=== PATIENT | female | born 1960 | race Caucasian/White ===

== ENCOUNTER 2018-09-24 08:59 | Emergency (ER) | payer BC ==
[2018-09-24] MEDS ORDERED: LIDOCAINE 1% MPF 5 ML VIAL ONE (09:48)
[2018-09-24] MEDS ORDERED: TETANUS & DIPHTHERIA TOX,ADULT 0.5 ML VIAL ONE (09:48)
[2018-09-24] MEDS ORDERED: IBUPROFEN 400 MG TAB ONE (09:54)
--- NOTE | 2018-09-24 10:27 | ER ---
Nurse's Notes [facility] Name: Lurdes Harper Age: 57 yrs Sex: Female : 1960 Arrival Date: 09/24/2018 Time: 09:01 Bed 16 Private MD: out of town, doctor Diagnosis: Laceration without foreign body of left thumb without damage to nail Presentation: 09/24 09:09 Presenting complaint: Patient states: laceration to posterior right thumb after running iw her hand over seat covers trimmer. Transition of care: patient was not received from another setting of care. Complicating Factors: There are no complicating factors for this patient. Onset of symptoms was September 24, 2018. Risk Assessment: Do you want to hurt yourself or someone else? Patient reports no desire to harm self or others. Initial Sepsis Screen: Does the patient meet any 2 criteria? No. Patient's initial sepsis screen is negative. Does the patient have a suspected source of infection? No. Patient's initial sepsis screen is negative. Care prior to arrival: None. 09:09 Method Of Arrival: Ambulatory iw 09:09 Acuity: RUBY 4 iw Historical: - Allergies: 09:11 No Known Allergies; iw - Home Meds: 09:11 None [Active]; iw - PMHx: 09:11 uterine cancer; colon cancer; iw - PSHx: 09:11 Hysterectomy; iw - Immunization history:: Last tetanus immunization:. - Social history:: Smoking status: Patient/guardian denies using tobacco. - Ebola Screening: : Patient negative for fever greater than or equal to 101.5 degrees Fahrenheit, and additional compatible Ebola Virus Disease symptoms Patient denies exposure to infectious person Patient denies travel to an Ebola-affected area in the 21 days before illness onset No symptoms or risks identified at this time. Screenin:00 Abuse screen: Denies threats or abuse. Nutritional screening: No deficits noted. jl7 Tuberculosis screening: No symptoms or risk factors identified. Fall Risk None identified. Assessment: 10:00 General: Appears in no apparent distress. uncomfortable, Behavior is calm, cooperative, jl7 appropriate for age. Pain: Complains of pain in left hand Pain does not radiate. Neuro: Level of Consciousness is awake, alert, obeys commands, Oriented to person, place, time, situation. Cardiovascular: Patient's skin is warm and dry. Respiratory: Airway is patent Respiratory effort is even, unlabored, Respiratory pattern is regular, symmetrical. GI: No signs and/or symptoms were reported involving the gastrointestinal system. : No signs and/or symptoms were reported regarding the genitourinary system. EENT: No signs and/or symptoms were reported regarding the EENT system. Derm: Skin is pink, warm \T\ dry. Musculoskeletal: Range of motion: intact in all extremities. Injury Description: Laceration sustained to left hand is contaminated, 2.6 to 7.5 cm long, was sustained 30-60 minutes ago. is bleeding no active bleeding noted. Vital Signs: 09:10 BP 110 / 63; Pulse 99; Resp 16 S; Pulse Ox 95% on R/A; Weight 65.77 kg; Height 5 ft. 6 iw in. (167.64 cm); Pain 8/10; 10:57 BP 111 / 65; Pulse 89; Resp 16 S; Pulse Ox 97% on R/A; jl7 09:10 Body Mass Index 23.40 (65.77 kg, 167.64 cm) iw ED Course: 09:01 Patient arrived in ED. mr 09:01 out of town, doctor is Private Physician. mr 09:09 Kai Dong PA is PHCP. cp 09:09 Jose Nichole MD is Attending Physician. cp 09:10 Triage completed. iw 09:11 Arm band placed on. iw 09:33 Uzair Fields, RICHARD is Primary Nurse. jl7 09:52 Wound care: to laceration located on palmar aspect of proximal phalanx of left thumb mh5 was cleaned with Betadine, Patient tolerated well. 10:00 Patient has correct armband on for positive identification. Bed in low position. Call jl7 light in reach. Side rails up X 1. 10:30 Assist provider with laceration repair on palmar aspect of proximal phalanx of left jl7 thumb that was between 2.6 to 7.5 cm using sutures. Set up tray. Performed by Kai EDWARDS Dressed with Neosporin, Patient tolerated well. 10:36 XRAY Hand LEFT 3 View In Process Unspecified. EDMS 10:58 Patient did not have IV access during this emergency room visit. 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 Exp: jl7 08/27/2020. Lot #: [id number]. } Route: IM; Site: left deltoid; 10:33 Follow up: Response: No adverse reaction jl7 09:46 Drug: Motrin 800 mg Route: PO; jl7 10:32 Follow up: Response: No adverse reaction; Pain is decreased jl7 10:10 Drug: Lidocaine (1 %) 5 ml {Note: administered by PA. Adrianna} Volume: 5 ml; Route: jl7 Infiltration; 10:32 Follow up: Response: No adverse reaction jl7 Outcome: 10:27 Discharge ordered by . ankita 10:58 Discharged to home ambulatory. jl7 10:58 Condition: stable 10:58 Discharge instructions given to patient, Instructed on discharge instructions, follow up and referral plans. medication usage, Demonstrated understanding of instructions, follow-up care, medications, Prescriptions given X 1. 10:59 Patient left the ED. jl7 Signatures: Dispatcher [employer] MALATN Gracy Gambino Irene, Kai Aquino RN, PA PA cp Martinez, [facility] Uzair Fields RN RN jl7
--- NOTE | 2018-09-24 10:28 | EDPHYS ---
Physician Documentation [facility] Name: Lurdes Harper Age: 57 yrs Sex: Female : 1960 Arrival Date: 09/24/2018 Time: 09:01 Bed 16 Private MD: out of town, doctor ED Physician Jose Nichole HPI: 09/24 09:30 This 57 yrs old Female presents to ER via Ambulatory with complaints of cp Laceration To Hand. 09:30 The patient has a laceration occurred outdoors. The laceration(s) is(are) located on cp the dorsal aspect left thumb. Onset: The symptoms/episode began/occurred just prior to arrival. Historical: - Allergies: 09:11 No Known Allergies; iw - Home Meds: 09:11 None [Active]; iw - PMHx: 09:11 uterine cancer; colon cancer; iw - PSHx: 09:11 Hysterectomy; iw - Immunization history:: Last tetanus immunization:. - Social history:: Smoking status: Patient/guardian denies using tobacco. - Ebola Screening: : Patient negative for fever greater than or equal to 101.5 degrees Fahrenheit, and additional compatible Ebola Virus Disease symptoms Patient denies exposure to infectious person Patient denies travel to an Ebola-affected area in the 21 days before illness onset No symptoms or risks identified at this time. ROS: 09:35 Constitutional: Negative for body aches, chills, fever, poor PO intake. cp 09:35 Skin: Positive for laceration(s), of the dorsal aspect proximal phalanx left thumb. cp 09:35 Neuro: Negative for numbness, tingling, weakness. 09:35 All other systems are negative. Exam: 09:42 Constitutional: The patient appears in no acute distress, alert, awake, well developed, cp well nourished. 09:42 Head/Face: Normocephalic, atraumatic. cp 09:42 Eyes: Periorbital structures: appear normal, Conjunctiva: normal, Lids and lashes: appear normal, bilaterally. 09:42 ENT: External ear(s): are unremarkable, Nose: is normal, Mouth: is normal. 09:42 Chest/axilla: Inspection: normal. 09:42 Cardiovascular: Rate: normal. 09:42 Respiratory: the patient does not display signs of respiratory distress, Respirations: normal, no use of accessory muscles, no retractions, no splinting, no tachypnea. 09:42 Abdomen/GI: Inspection: abdomen appears normal. 09:42 Musculoskeletal/extremity: ROM: full active range of motion, in the left thumb, Perfusion: the extremity is normally perfused throughout, Sensation intact. Tendon exam: specific tendon testing normal through active and passive range of motion 09:42 Skin: injury, laceration(s), the wound is approximately 3 cm(s), of the dorsal side proximal phalanx left thumb, that can be described as clean, no foreign body, linear, with mild bleeding. Vital Signs: 09:10 BP 110 / 63; Pulse 99; Resp 16 S; Pulse Ox 95% on R/A; Weight 65.77 kg; Height 5 ft. 6 iw in. (167.64 cm); Pain 8/10; 10:57 BP 111 / 65; Pulse 89; Resp 16 S; Pulse Ox 97% on R/A; jl7 09:10 Body Mass Index 23.40 (65.77 kg, 167.64 cm) iw Laceration: 10:23 Wound Repair of 3cm ( 1.2in ) subcutaneous laceration to dorsal aspect proximal phalanx cp left thumb. Linear shaped.. Distal neuro/vascular/tendon intact. Anesthesia: Wound infiltrated with 3 mls of 1% lidocaine. Wound prep: Moderate cleansing by me, Wound irrigation by me. Skin closed with 4 4-0 Prolene using simple sutures and sterile technique. Dressed with Bacitracin, non-adherent dressing. Patient tolerated well. MDM: 09:09 Patient medically screened. cp 10:00 Differential diagnosis: superficial laceration, tendon injury, vascular injury, open cp fracture. 10:25 Data reviewed: vital signs, nurses notes, radiologic studies, plain films. cp 10:26 Counseling: I had a detailed discussion with the patient and/or guardian regarding: the cp historical points, exam findings, and any diagnostic results supporting the discharge/admit diagnosis, to return to the emergency department if symptoms worsen or persist or if there are any questions or concerns that arise at home. 10:26 Response to treatment: the patient's symptoms have markedly improved after treatment, cp and as a result, I will discharge patient. 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 Exp: jl7 08/27/2020. Lot #: [id number]. } Route: IM; Site: left deltoid; 10:33 Follow up: Response: No adverse reaction jl7 09:46 Drug: Motrin 800 mg Route: PO; jl7 10:32 Follow up: Response: No adverse reaction; Pain is decreased jl7 10:10 Drug: Lidocaine (1 %) 5 ml {Note: administered by PA. Adrianna} Volume: 5 ml; Route: jl7 Infiltration; 10:32 Follow up: Response: No adverse reaction jl7 Disposition: 11:05 Chart complete. cp 12:18 Co-signature as Attending Physician, Jose Nichole MD. Disposition: 09/24/18 10:27 Discharged to Home. Impression: Laceration without foreign body of left thumb without damage to nail. - Condition is Stable. - Discharge Instructions: Laceration Care, Adult. - Prescriptions for Tramadol 50 mg Oral Tablet - take 1 tablet by ORAL route every 8 hours as needed; 12 tablet. - Medication Reconciliation Form, Thank You Letter, Antibiotic Education, Prescription Opioid Use form. - Follow up: Private Physician; When: 7 - 10 days; Reason: Staple/Suture removal. - Problem is new. - Symptoms have improved. Signatures: Dispatcher [employer] Emili Moss RN RN iw Page, Corey, PA PA cp Leal, Jahala, RN RN jl7 Starr, Gregory, MD MD Corrections: (The following items were deleted from the chart) 10:25 10:25 Dressing - Wound ordered. cp cp 10:59 10:27 09/24/2018 10:27 Discharged to Home. Impression: Laceration without foreign body jl7 of left thumb without damage to nail. Condition is Stable. Forms are Medication Reconciliation Form, Thank You Letter, Antibiotic Education, Prescription Opioid Use. Follow up: Private Physician; When: 7 - 10 days; Reason: Staple/Suture removal. Problem is new. Symptoms have improved. cp
--- NOTE | 2018-09-24 11:32 | RAD REPORT ---
EXAM DESCRIPTION: RAD - Hand Left 3 View - 09/24/2018 10:36 am CLINICAL HISTORY: laceration First digit pain/laceration. COMPARISON: No comparisonsNo comparisons FINDINGS: No fracture, dislocation or radiopaque foreign body.
== END 2018-09-24 10:59 | disposition home or self-care (01) ==
LOC: ER 08:59
PROC: 0JQK0ZZ Repair Left Hand Subcutaneous Tissue and Fascia, Open Approach (ICD-10-PCS; principal; 2018-09-24)
DX: S61.012A Laceration without foreign body of left thumb without damage to nail, initial encounter (principal); Z85.42 Personal history of malignant neoplasm of other parts of uterus; Z85.038 Personal history of other malignant neoplasm of large intestine; Z23 Encounter for immunization
CPT/HCPCS: 90714; 99284

== ENCOUNTER 2018-10-05 17:09 | Emergency (ER) | payer BC ==
--- NOTE | 2018-10-05 17:27 | EDPHYS ---
Physician Documentation [facility] Name: Lurdes Harper Age: 57 yrs Sex: Female : 1960 Arrival Date: 10/05/2018 Time: 17:12 Bed 10 Private MD: out of town, doctor ED Physician Craig Falcon HPI: 10/05 17:22 This 57 yrs old Female presents to ER via Ambulatory with complaints of kb Suture Removal. 17:22 The patient has sutures on the dorsal aspect of proximal phalanx of left thumb. kb Previous treatment: The patient was initially treated 11 day(s) ago, the care was rendered at [facility], Treatment type: The patient's original treatment included sutures. Sutures/dana progress:. Sutures/dana progress: The patient's wound displays wound dehiscence. The patient has not experienced similar symptoms in the past. The patient has not recently seen a physician. Pt had sutures placed 11 days ago and came to have them removed. Historical: - Allergies: 17:22 No Known Allergies; sg - PMHx: 17:22 colon cancer; uterine cancer; sg - PSHx: 17:22 Hysterectomy; sg - Immunization history:: Adult Immunizations. - Social history:: Smoking status: Patient/guardian denies using tobacco. - Ebola Screening: : Patient negative for fever greater than or equal to 101.5 degrees Fahrenheit, and additional compatible Ebola Virus Disease symptoms Patient denies exposure to infectious person Patient denies travel to an Ebola-affected area in the 21 days before illness onset No symptoms or risks identified at this time. ROS: 17:23 Constitutional: Negative for fever, chills, and weight loss, Cardiovascular: Negative kb for chest pain, palpitations, and edema, Respiratory: Negative for shortness of breath, cough, wheezing, and pleuritic chest pain, Abdomen/GI: Negative for abdominal pain, nausea, vomiting, diarrhea, and constipation, MS/Extremity: Negative for injury and deformity, Neuro: Negative for headache, weakness, numbness, tingling, and seizure. 17:23 Skin: Positive for laceration(s), of the dorsal aspect of proximal phalanx of left thumb, sutures in place. Exam: 17:23 Constitutional: This is a well developed, well nourished patient who is awake, alert, kb and in no acute distress. Head/Face: Normocephalic, atraumatic. Chest/axilla: Normal chest wall appearance and motion. Nontender with no deformity. No lesions are appreciated. Cardiovascular: Regular rate and rhythm with a normal S1 and S2. No gallops, murmurs, or rubs. Normal PMI, no JVD. No pulse deficits. Respiratory: Lungs have equal breath sounds bilaterally, clear to auscultation and percussion. No rales, rhonchi or wheezes noted. No increased work of breathing, no retractions or nasal flaring. Abdomen/GI: Soft, non-tender, with normal bowel sounds. No distension or tympany. No guarding or rebound. No evidence of tenderness throughout. MS/ Extremity: Pulses equal, no cyanosis. Neurovascular intact. Full, normal range of motion. Neuro: Awake and alert, GCS 15, oriented to person, place, time, and situation. Cranial nerves II-XII grossly intact. Motor strength 5/5 in all extremities. Sensory grossly intact. Cerebellar exam normal. Normal gait. 17:23 Skin: Wound recheck: Suture laceration closure: the wound is healing well, the edges are well approximated, no drainage, no erythema, no swelling, mild dehiscence. Vital Signs: 17:25 sg 17:25 pt left after being evaluated by ERP prior to obtaining VS for triage and for Discharge sg MDM: 17:20 Patient medically screened. kb 17:21 Data reviewed: nurses notes. Counseling: I had a detailed discussion with the patient kb and/or guardian regarding: the historical points, exam findings, and any diagnostic results supporting the discharge/admit diagnosis, the need for outpatient follow up, a hand specialist, to return to the emergency department if symptoms worsen or persist or if there are any questions or concerns that arise at home. 17:24 ED course: Pt has been keeping wound moist with neosporin. part of laceration is not kb healed and will dehisce if sutures removed at this time. Pt educated to keep wound clean and dry. Will return in 3 days for removal of sutures. . Administered Medications: No medications were administered Disposition: 10/06 06:33 Co-signature as Attending Physician, Craig Falcon MD I agree with the assessment and kdr plan of care. Disposition: 10/05/18 17:26 Discharged to Home. Impression: Encounter for removal of sutures - sutures not removed at this time. - Condition is Stable. - Medication Reconciliation Form, Thank You Letter, Antibiotic Education, Prescription Opioid Use form. - Follow up: Emergency Department; When: As needed; Reason: Worsening of condition. Follow up: Private Physician; When: 2 - 3 days; Reason: Recheck today's complaints, Continuance of care, Re-evaluation by your physician. Signatures: Krystina Simon FNP-Josselin SMITH-Mesfin Sandoval RN RN Craig Falcon MD MD [facility] Corrections: (The following items were deleted from the chart) 10/05 17:27 17:26 10/05/2018 17:26 Discharged to Home. Impression: Encounter for removal of sutures sg - sutures not removed at this time. Condition is Stable. Forms are Medication Reconciliation Form, Thank You Letter, Antibiotic Education, Prescription Opioid Use. Follow up: Emergency Department; When: As needed; Reason: Worsening of condition. Follow up: Private Physician; When: 2 - 3 days; Reason: Recheck today's complaints, Continuance of care, Re-evaluation by your physician. kb
--- NOTE | 2018-10-05 17:27 | ER ---
Nurse's Notes [facility] Name: Lurdes Harper Age: 57 yrs Sex: Female : 1960 Arrival Date: 10/05/2018 Time: 17:12 Bed 10 Private MD: out of town, doctor Diagnosis: Encounter for removal of sutures-sutures not removed at this time Presentation: 10/05 17:19 Presenting complaint: Patient states: Had these sutures inserted on the Sep 19 2018 sg after a laceration caused by a weed whacker machine. Transition of care: patient was not received from another setting of care. Onset of symptoms was October 05, 2018. Risk Assessment: Do you want to hurt yourself or someone else? Patient reports no desire to harm self or others. Initial Sepsis Screen: Does the patient meet any 2 criteria? No. Patient's initial sepsis screen is negative. Does the patient have a suspected source of infection? No. Patient's initial sepsis screen is negative. Care prior to arrival: None. 17:19 Method Of Arrival: Ambulatory sg 17:19 Acuity: RUBY 5 sg Historical: - Allergies: 17:22 No Known Allergies; sg - PMHx: 17:22 colon cancer; uterine cancer; sg - PSHx: 17:22 Hysterectomy; sg - Immunization history:: Adult Immunizations. - Social history:: Smoking status: Patient/guardian denies using tobacco. - Ebola Screening: : Patient negative for fever greater than or equal to 101.5 degrees Fahrenheit, and additional compatible Ebola Virus Disease symptoms Patient denies exposure to infectious person Patient denies travel to an Ebola-affected area in the 21 days before illness onset No symptoms or risks identified at this time. Screenin:25 Abuse screen: Denies threats or abuse. Denies injuries from another. Nutritional sg screening: No deficits noted. Tuberculosis screening: No symptoms or risk factors identified. Never had TB. Fall Risk None identified. Assessment: 17:22 General: Appears in no apparent distress. well groomed, well developed, well nourished, sg Behavior is calm, cooperative, appropriate for age. Pain: Denies pain. Neuro: Level of Consciousness is awake, alert, obeys commands, Oriented to person, place, time, situation, Senior Principal Process Engineer are equal bilaterally Moves all extremities. Speech is normal, Facial symmetry appears normal. Cardiovascular: No deficits noted. Respiratory: Airway is patent Respiratory effort is even, unlabored, Respiratory pattern is regular, symmetrical. GI: No signs and/or symptoms were reported involving the gastrointestinal system. : No signs and/or symptoms were reported regarding the genitourinary system. EENT: No signs and/or symptoms were reported regarding the EENT system. Derm: Skin is pink, warm \T\ dry. Musculoskeletal: Circulation, motion, and sensation intact. Range of motion: intact in all extremities, Swelling absent. Injury Description: sutures intact to the Left thumb, no drainage noted at this time, pt reports constant use of NeoSporin with numbing agent noted. Vital Signs: 17:25 sg 17:25 pt left after being evaluated by ERP prior to obtaining VS for triage and for Discharge sg ED Course: 17:12 Patient arrived in ED. mr 17:13 out of town, doctor is Private Physician. mr 17:13 Krystina Simon FNP-C [facility]. kb 17:13 Craig Falcon MD is Attending Physician. kb 17:19 Mesfin Ventura, RN is Primary Nurse. sg 17:19 Arm band placed on. sg 17:21 Triage completed. sg 17:25 Patient has correct armband on for positive identification. Bed in low position. sg 17:25 No provider procedures requiring assistance completed. IV discontinued, intact, sg bleeding controlled, No redness/swelling at site. Pressure dressing applied. Administered Medications: No medications were administered Outcome: 17:26 Discharge ordered by MD. kb 17:26 Discharged to home ambulatory. sg 17:26 Condition: good 17:26 Discharge instructions given to patient, Instructed on discharge instructions, follow up and referral plans. wound care, Demonstrated understanding of instructions. 17:27 Patient left the ED. sg Signatures: Krystina Simon FNP-C FNP-Mesfin Sandoval, RN RN Gracy Gambino mr
== END 2018-10-05 17:27 | disposition home or self-care (01) ==
LOC: ER 17:09
DX: Z48.02 Encounter for removal of sutures (principal); C18.9 Malignant neoplasm of colon, unspecified; C55 Malignant neoplasm of uterus, part unspecified
CPT/HCPCS: 99281

== ENCOUNTER 2018-10-08 11:06 | Emergency (ER) | payer BC ==
--- NOTE | 2018-10-08 11:37 | ER ---
Nurse's Notes [facility] Name: Lurdes Harper Age: 58 yrs Sex: Female : 1960 Arrival Date: 10/08/2018 Time: 11:08 Bed 12 Private MD: out of town, doctor Diagnosis: Encounter for removal of sutures Presentation: 10/08 11:18 Presenting complaint: Patient states: need for suture removal, 4 sutures noted to left aa5 hand. Pt states "I came here on Wednesday and they said they weren't ready to come out yet". Transition of care: patient was not received from another setting of care. Onset of symptoms was October 08, 2018. Risk Assessment: Do you want to hurt yourself or someone else? Patient reports no desire to harm self or others. Initial Sepsis Screen: Does the patient meet any 2 criteria? No. Patient's initial sepsis screen is negative. Does the patient have a suspected source of infection? No. Patient's initial sepsis screen is negative. Care prior to arrival: None. 11:18 Acuity: RUBY 4 aa5 11:18 Method Of Arrival: Ambulatory aa5 Historical: - Allergies: 11:19 No Known Allergies; aa5 - PMHx: 11:19 colon cancer; uterine cancer; aa5 - PSHx: 11:19 Hysterectomy; aa5 - Immunization history:: Adult Immunizations up to date. - Social history:: Smoking status: Patient/guardian denies using tobacco. - Ebola Screening: : No symptoms or risks identified at this time. Screenin:20 Abuse screen: Denies threats or abuse. Nutritional screening: No deficits noted. aa5 Tuberculosis screening: No symptoms or risk factors identified. Fall Risk None identified. Assessment: 11:20 General: Appears comfortable, Behavior is calm, cooperative. Pain: Denies pain. Neuro: aa5 Level of Consciousness is awake, alert, obeys commands, Oriented to person, place, time, situation. Cardiovascular: No deficits noted. Respiratory: Airway is patent Respiratory effort is even, unlabored, Respiratory pattern is regular, symmetrical. GI: No signs and/or symptoms were reported involving the gastrointestinal system. : No signs and/or symptoms were reported regarding the genitourinary system. EENT: No signs and/or symptoms were reported regarding the EENT system. Derm: Skin is pink, warm \\T\\ dry. 4 sutures noted to left hand, pt states "I have some numbness to my left thumb but I already have an appointment with the hand orthopedic doctor". Musculoskeletal: Range of motion: intact in all extremities. 11:36 Reassessment: Patient is alert, oriented x 3, equal unlabored respirations, skin aa5 warm/dry/pink. 11:36 Reassessment: Sutures removed by ASSISTANT MERCHANDISE MANAGER . aa5 Vital Signs: 11:19 BP 114 / 57; Pulse 76; Resp 16 S; Temp 97.5(TE); Pulse Ox 98% on R/A; Pain 0/10; aa5 ED Course: 11:08 Patient arrived in ED. mr 11:08 out of town, doctor is Private Physician. mr 11:19 Triage completed. aa5 11:19 Arm band placed on. aa5 11:19 Patient has correct armband on for positive identification. aa5 11:20 Noy Dhillon, RN is Primary Nurse. aa5 11:21 Erica Mcqueen FNP-C is PHCP. snw 11:21 Stefano Navarro MD is Attending Physician. snw 11:34 No provider procedures requiring assistance completed. aa5 11:36 Patient did not have IV access during this emergency room visit. aa5 Administered Medications: No medications were administered Outcome: 11:36 Discharge ordered by MD. snw 11:36 Discharged to home ambulatory. aa5 11:36 Condition: stable 11:36 Discharge instructions given to patient, Instructed on discharge instructions, follow up and referral plans. Demonstrated understanding of instructions, follow-up care. 11:36 No charge visit due to suture removal. aa5 11:37 Patient left the ED. aa5 Signatures: Erica Mcqueen FNP-C HOUSING ASSISTANT-Csnw Gracy Gambino mr Noy Dhillon, RN RN aa5 Corrections: (The following items were deleted from the chart) 11:42 11:41 Patient left the ED. aa5 aa5
--- NOTE | 2018-10-08 11:37 | EDPHYS ---
Physician Documentation [facility] Name: Lurdes Harper Age: 58 yrs Sex: Female : 1960 Arrival Date: 10/08/2018 Time: 11:08 Bed 12 Private MD: out of town, doctor ED Physician Stefano Navarro HPI: 10/08 11:33 This 58 yrs old Female presents to ER via Ambulatory with complaints of snw Suture Removal. 11:33 The patient has sutures on the dorsal aspect of proximal phalanx of left thumb. snw Previous treatment: The patient was initially treated 11 day(s) ago. Sutures/dana progress: The patient has no c/o's. The wound is well-healing with no redness, swelling, discharge, or dehiscence reported. The patient has not experienced similar symptoms in the past. The patient has been recently seen by a physician: pt came for suture removal 4 days ago, wound had stayed moist with neosporin and pt was instructed to dc neosporin and let area dry, return for suture removal today. Historical: - Allergies: 11:19 No Known Allergies; aa5 - PMHx: 11:19 colon cancer; uterine cancer; aa5 - PSHx: 11:19 Hysterectomy; aa5 - Immunization history:: Adult Immunizations up to date. - Social history:: Smoking status: Patient/guardian denies using tobacco. - Ebola Screening: : No symptoms or risks identified at this time. ROS: 11:32 Constitutional: Negative for fever, chills, and weight loss, Eyes: Negative for injury, snw pain, redness, and discharge, ENT: Negative for injury, pain, and discharge, Neck: Negative for injury, pain, and swelling, Cardiovascular: Negative for chest pain, palpitations, and edema, Respiratory: Negative for shortness of breath, cough, wheezing, and pleuritic chest pain, Abdomen/GI: Negative for abdominal pain, nausea, vomiting, diarrhea, and constipation, Back: Negative for injury and pain, : Negative for injury, bleeding, discharge, and swelling, MS/Extremity: Negative for injury and deformity, Skin: Negative for rash and discoloration, here for suture removal to left thumb base Neuro: Negative for headache, weakness, numbness, tingling, and seizure. Exam: 11:29 Constitutional: This is a well developed, well nourished patient who is awake, alert, snw and in no acute distress. Head/Face: Normocephalic, atraumatic. Eyes: Pupils equal round and reactive to light, extra-ocular motions intact. Lids and lashes normal. Conjunctiva and sclera are non-icteric and not injected. Cornea within normal limits. Periorbital areas with no swelling, redness, or edema. ENT: Nares patent. No nasal discharge, no septal abnormalities noted. Tympanic membranes are normal and external auditory canals are clear. Oropharynx with no redness, swelling, or masses, exudates, or evidence of obstruction, uvula midline. Mucous membranes moist. Neck: Trachea midline, no thyromegaly or masses palpated, and no cervical lymphadenopathy. Supple, full range of motion without nuchal rigidity, or vertebral point tenderness. No Meningismus. Chest/axilla: Normal chest wall appearance and motion. Nontender with no deformity. No lesions are appreciated. Cardiovascular: Regular rate and rhythm with a normal S1 and S2. No gallops, murmurs, or rubs. Normal PMI, no JVD. No pulse deficits. Respiratory: Lungs have equal breath sounds bilaterally, clear to auscultation and percussion. No rales, rhonchi or wheezes noted. No increased work of breathing, no retractions or nasal flaring. Abdomen/GI: Soft, non-tender, with normal bowel sounds. No distension or tympany. No guarding or rebound. No evidence of tenderness throughout. Back: No spinal tenderness. No costovertebral tenderness. Full range of motion. Skin: Warm, dry with normal turgor. Normal color with no rashes, no lesions, and no evidence of cellulitis. Neuro: Awake and alert, GCS 15, oriented to person, place, time, and situation. Cranial nerves II-XII grossly intact. Motor strength 5/5 in all extremities. Sensory grossly intact. Cerebellar exam normal. Normal gait. Psych: Awake, alert, with orientation to person, place and time. Behavior, mood, and affect are within normal limits. 11:29 Musculoskeletal/extremity: Extremities: grossly normal except: sutures x 4 removed from left thumb base. wound well approximated without dc, erythema, warmth. Pt does have some intermittent tingling, pain to left CMC area , Circulation is intact in all extremities. Sensation intact. Vital Signs: 11:19 BP 114 / 57; Pulse 76; Resp 16 S; Temp 97.5(TE); Pulse Ox 98% on R/A; Pain 0/10; aa5 MDM: 11:22 Patient medically screened. snw 11:37 Data reviewed: vital signs, nurses notes. Data interpreted: Pulse oximetry: on room air snw is 98 %. Interpretation: normal. Counseling: I had a detailed discussion with the patient and/or guardian regarding: the historical points, exam findings, and any diagnostic results supporting the discharge/admit diagnosis, the need for outpatient follow up, to return to the emergency department if symptoms worsen or persist or if there are any questions or concerns that arise at home. Special discussion: Based on the history and exam findings, there is no indication for further emergent testing or inpatient evaluation. I discussed with the patient/guardian the need to see the primary care provider for further evaluation of the symptoms. Administered Medications: No medications were administered Disposition: 17:52 Co-signature as Attending Physician, Stefano Navarro MD. ma2 Disposition: 10/08/18 11:36 Discharged to Home. Impression: Encounter for removal of sutures. - Condition is Stable. - Discharge Instructions: Suture Removal, Care After, Incision Care, Adult. - Medication Reconciliation Form, Thank You Letter, Antibiotic Education, Prescription Opioid Use form. - Follow up: Private Physician; When: 2 - 3 days; Reason: Recheck today's complaints, Continuance of care, Re-evaluation by your physician. Follow up: Emergency Department; When: As needed; Reason: Worsening of condition. Signatures: Erica Mcqueen, SARAH-C MAIN ENTREE COOK AND CASHIER-[place]helaw Noy Dhillon RN RN [email or web address] Stefano Navarro MD MD ma2 Corrections: (The following items were deleted from the chart) 11:41 11:36 10/08/2018 11:36 Discharged to Home. Impression: Encounter for removal of aa5 sutures. Condition is Stable. Forms are Medication Reconciliation Form, Thank You Letter, Antibiotic Education, Prescription Opioid Use. Follow up: Private Physician; When: 2 - 3 days; Reason: Recheck today's complaints, Continuance of care, Re-evaluation by your physician. Follow up: Emergency Department; When: As needed; Reason: Worsening of condition. snw
== END 2018-10-08 11:41 | disposition home or self-care (01) ==
LOC: ER 11:06
DX: Z48.02 Encounter for removal of sutures (principal)